=== PATIENT | male | born 1955 | race Caucasian/White ===

== ENCOUNTER 2017-11-24 08:56 | Emergency (ER) | payer OTHER ==
[2017-11-24] MEDS ORDERED: fentaNYL PF VIAL 100 MCG/2 ML VIAL IV (09:15)
[2017-11-24 09:19] LABS: ADD MAN DIFF? NO
[2017-11-24 09:28] LABS: BASO # 0.1 x10^3/uL (0.0-0.2); BASO % 1 % (0-3); EOS # 0.2 x10^3/uL (0.0-0.7); EOS % 3 % (0-3); HEMATOCRIT 47.1 % (39.0-53.0); LYMPH # 2.5 x10^3/uL (1.0-4.8); LYMPH % 40 % (24-48); MEAN CORPUSCULAR HEMOGLOBIN 31 pg (25-35); MEAN CORPUSCULAR HGB CONC 34 g/dL (31-37); MEAN CORPUSCULAR VOLUME 91 fL (79-100); MONO # 0.5 x10^3/uL (0.0-1.1); MONO % 8 % (0-9); NEUT % 48 % (31-73); PLATELET COUNT 157 x10^3/uL (140-400); RED BLOOD COUNT 5.16 x10^6/uL (4.30-5.70); RED CELL DISTRIBUTION WIDTH 14.2 % (11.5-14.5); WHITE BLOOD COUNT 6.3 x10^3/uL (4.0-11.0)
[2017-11-24 09:38] LABS: ALBUMIN 4.1 g/dL (3.4-5.0); ALK PHOS 53 U/L (46-116); ALT (SGPT) 91 U/L (16-63); ANION GAP 14 (6-14); AST (SGOT) 81 U/L (15-37); BLOOD UREA NITROGEN 10 mg/dL (8-26); CALCIUM 9.2 mg/dL (8.5-10.1); CARBON DIOXIDE 26 mmol/L (21-32); CHLORIDE 104 mmol/L (98-107); CREATININE 1.1 mg/dL (0.7-1.3); DIRECT BILIRUBIN 0.1 mg/dL (0.0-0.2); GFR 68.3; GLUCOSE 92 mg/dL (70-99); LIPASE 272 U/L (73-393); POTASSIUM 3.4 mmol/L (3.5-5.1); SODIUM 144 mmol/L (136-145); TOTAL BILIRUBIN 0.4 mg/dL (0.2-1.0)
[2017-11-24 09:38] LABS: ETHANOL 226 mg/dL (0-10)
[2017-11-24 09:39] LABS: TROPONINI < 0.017 ng/mL (0.000-0.055)
[2017-11-24 09:45] LABS: CKMB INDEX 1.1 % (0-4); CKMB MASS 1.1 ng/mL (0.0-3.6); CREATINE KINASE 101 U/L (39-308)
[2017-11-24 09:45] LABS: NT-PRO BNP 44 pg/mL (0-124)
[2017-11-24 09:46] LABS: THYROID STIM HORMONE (TSH) 1.051 uIU/mL (0.358-3.74)
[2017-11-24] MEDS: MULTIVIT INFUSN,ADULT 4,VIT K 10 ML, THIAMINE 100 MG, FOLIC ACID 1 MG in IV RINGERS,LAC... IV (09:52)
== END 2017-11-24 11:20 | disposition home or self-care (01) ==
LOC: ER 08:56
DX: R55 Syncope and collapse (principal); F10.129 Alcohol abuse with intoxication, unspecified; S09.90XA Unspecified injury of head, initial encounter; I10 Essential (primary) hypertension; F12.10 Cannabis abuse, uncomplicated; W19.XXXA Unspecified fall, initial encounter; Y93.E1 Activity, personal bathing and showering; Y99.8 Other external cause status; Y92.89 Other specified places as the place of occurrence of the external cause
CPT/HCPCS: 36415; 70450; 71045; 72125; 80048; 80076; 82553; 83690; 83880; 84443; 84484; 85025; 93005; 96365; 99285-25; G0480; J7120

== ENCOUNTER 2017-11-29 16:16 | Inpatient (IN) | payer OTHER ==
[2017-11-29] MEDS: ONDANSETRON PF 4 MG/2 ML VIAL. IV (16:45)
[2017-11-29] MEDS: IV NORMAL SALINE 1000ML BAG 1,000 ML IV ×2 (17:42→22:59)
[2017-11-29] MEDS: THIAMINE 100 MG in IV DEXTROSE 5% 50 ML IV (17:43)
[2017-11-29 19:06] LABS: ANION GAP 13 (6-14); BLOOD UREA NITROGEN 24 mg/dL (8-26); BUN/CREATININE RATIO 22 (6-20); CALCIUM 8.4 mg/dL (8.5-10.1); CARBON DIOXIDE 23 mmol/L (21-32); CHLORIDE 100 mmol/L (98-107); CREATININE 1.1 mg/dL (0.7-1.3); GFR 68.3; GLUCOSE 101 mg/dL (70-99); POTASSIUM 3.6 mmol/L (3.5-5.1); SODIUM 136 mmol/L (136-145)
[2017-11-29 19:08] LABS: ETHANOL < 10 mg/dL (0-10)
[2017-11-29 19:11] LABS: ALBUMIN 3.3 g/dL (3.4-5.0); ALBUMIN/GLOBULIN RATIO 1.3 (1.0-1.7); ALK PHOS 44 U/L (46-116); ALT (SGPT) 37 U/L (16-63); AST (SGOT) 33 U/L (15-37); LIPASE 129 U/L (73-393); TOTAL BILIRUBIN 0.7 mg/dL (0.2-1.0); TOTAL PROTEIN 5.9 g/dL (6.4-8.2)
[2017-11-29 19:12] LABS: TROPONINI 0.034 ng/mL (0.000-0.055)
[2017-11-29 19:29] LABS: ADD MAN DIFF? NO; BASO % 1 % (0-3); EOS % 0 % (0-3); HEMATOCRIT 36.1 % (39.0-53.0); HEMOGLOBIN 12.9 g/dL (13.0-17.5); LYMPH # 1.5 x10^3/uL (1.0-4.8); LYMPH % 20 % (24-48); MEAN CORPUSCULAR HEMOGLOBIN 32 pg (25-35); MEAN CORPUSCULAR HGB CONC 36 g/dL (31-37); MEAN CORPUSCULAR VOLUME 89 fL (79-100); MONO # 0.7 x10^3/uL (0.0-1.1); MONO % 9 % (0-9); NEUT # 5.5 x10^3uL (1.8-7.7); NEUT % 70 % (31-73); PLATELET COUNT 133 x10^3/uL (140-400); RED BLOOD COUNT 4.05 x10^6/uL (4.30-5.70); RED CELL DISTRIBUTION WIDTH 13.8 % (11.5-14.5); WHITE BLOOD COUNT 7.8 x10^3/uL (4.0-11.0)
[2017-11-29] MEDS ORDERED: NITROGLYCERIN SUBLINGUAL 0.4 MG BOTTLE OF 25. SL (19:45)
[2017-11-29] MEDS ORDERED: ONDANSETRON PF 4 MG/2 ML VIAL. IV (19:45)
[2017-11-29 20:44] LABS: BILIRUBIN,URINE NEGATIVE (NEG); CLARITY,URINE CLEAR; COLOR,URINE YELLOW; GLUCOSE,URINE NEGATIVE (NEG); NITRITE,URINE NEGATIVE (NEG); PH,URINE 5.5; PROTEIN,URINE NEGATIVE (NEG-TRACE); UROBILINOGEN,URINE 0.2 mg/dL (0.2 mg/dL)
[2017-11-29 20:50] LABS: RBC,URINE 0 /HPF (0-2); WBC,URINE 0 /HPF (0-4)
[2017-11-29 20:51] LABS: BACTERIA,URINE 0 /HPF (0-FEW); BARBITURATES NEG (NEG); BENZODIAZEPINES POS (NEG); CANNABINOIDS POS (NEG); COCAINE NEG (NEG); HYALINE CASTS, URINE FEW /HPF; METHADONE NEG (NEG); OPIATES NEG (NEG); PHENCYCLIDINE NEG (NEG); SQUAMOUS EPITHELIAL CELL,UR FEW /LPF
[2017-11-29 20:52] LABS: AMPHETAMINE/METHAMPHETAMINE NEG (NEG); ETHANOL, URINE POS (NEG)
[2017-11-29] MEDS: ACETAMINOPHEN 325 MG TABLET. PO (22:38)
[2017-11-29] MEDS: fentaNYL PF VIAL 100 MCG/2 ML VIAL IV (22:41)
[2017-11-29 23:13] LABS: TROPONINI 0.943 ng/mL (0.000-0.055)
[2017-11-30 05:29] LABS: ADD MAN DIFF? NO
[2017-11-30 05:35] LABS: BASO % 1 % (0-3); EOS % 0 % (0-3); HEMATOCRIT 34.3 % (39.0-53.0); HEMOGLOBIN 12.1 g/dL (13.0-17.5); LYMPH # 1.5 x10^3/uL (1.0-4.8); LYMPH % 24 % (24-48); MEAN CORPUSCULAR HEMOGLOBIN 31 pg (25-35); MEAN CORPUSCULAR HGB CONC 35 g/dL (31-37); MEAN CORPUSCULAR VOLUME 89 fL (79-100); MONO # 0.8 x10^3/uL (0.0-1.1); MONO % 12 % (0-9); NEUT # 4.1 x10^3uL (1.8-7.7); NEUT % 64 % (31-73); PLATELET COUNT 128 x10^3/uL (140-400); RED BLOOD COUNT 3.85 x10^6/uL (4.30-5.70); RED CELL DISTRIBUTION WIDTH 13.9 % (11.5-14.5); WHITE BLOOD COUNT 6.4 x10^3/uL (4.0-11.0)
[2017-11-30] MEDS: IV NORMAL SALINE 1000ML BAG 1,000 ML IV ×3 (05:43→16:40)
[2017-11-30] MEDS: LORazepam 1 MG TABLET PO ×4 (05:43→22:10)
[2017-11-30 06:02] LABS: ALBUMIN 3.1 g/dL (3.4-5.0); ALBUMIN/GLOBULIN RATIO 1.2 (1.0-1.7); ALK PHOS 42 U/L (46-116); ALT (SGPT) 32 U/L (16-63); ANION GAP 11 (6-14); AST (SGOT) 36 U/L (15-37); BLOOD UREA NITROGEN 19 mg/dL (8-26); BUN/CREATININE RATIO 17 (6-20); CALCIUM 8.1 mg/dL (8.5-10.1); CARBON DIOXIDE 26 mmol/L (21-32); CHLORIDE 102 mmol/L (98-107); CREATININE 1.1 mg/dL (0.7-1.3); GFR 68.3; GLUCOSE 107 mg/dL (70-99); POTASSIUM 3.4 mmol/L (3.5-5.1); SODIUM 139 mmol/L (136-145); TOTAL BILIRUBIN 0.9 mg/dL (0.2-1.0); TOTAL PROTEIN 5.6 g/dL (6.4-8.2)
[2017-11-30 06:09] LABS: TROPONINI 2.475 ng/mL (0.000-0.055)
[2017-11-30] MEDS ORDERED: THIAMINE 100 MG in IV DEXTROSE 5% 50 ML IV (09:00)
[2017-11-30 09:03] LABS: MAGNESIUM 1.8 mg/dL (1.8-2.4)
[2017-11-30 09:03] LABS: CHOLESTEROL 148 mg/dL (0-200); HDLC 40 mg/dL (40-60); LDLC 72 mg/dL (0-100); NON-HDL CHOLESTEROL 108 mg/dL (0-129); TRIGLYCERIDES 179 mg/dL (0-150); VLDLC 36 mg/dL (0-40)
[2017-11-30 09:04] LABS: CHOLESTEROL/HDL RATIO 3.7
[2017-11-30 09:11] LABS: CKMB INDEX 9.3 % (0-4); CKMB MASS 13.5 ng/mL (0.0-3.6); CREATINE KINASE 145 U/L (39-308)
[2017-11-30] MEDS: IOHEXOL 300 MG/ML 100ML VIAL. IV (10:00)
[2017-11-30] MEDS ORDERED: CONTRAST GIVEN MC (10:00)
[2017-11-30] MEDS: GADOBUTROL 7.5 MMOL/7.5 ML VIAL IV (10:45)
[2017-11-30] MEDS: METOPROLOL TART IMMED RELEASE 50 MG TABLET. PO ×2 (11:25→20:59)
[2017-11-30] MEDS: PANTOPRAZOLE 40 MG TABLET.DR. PO (11:26)
[2017-11-30] MEDS: ACETAMINOPHEN 325 MG TABLET. PO ×2 (11:26→19:43)
[2017-11-30] MEDS: FOLIC ACID 1 MG TABLET. PO (11:26)
[2017-11-30] MEDS: MULTIVITAMIN with MINERAL TABLET. PO (11:26)
[2017-11-30] MEDS: THIAMINE IM 200 MG/2 ML VIAL. IM (11:28)
[2017-11-30 12:18] LABS: INR 1.1 (0.8-1.1); PROTHROMBIN TIME PATIENT 13.9 SEC (11.7-14.0)
[2017-11-30 12:19] LABS: THYROID STIM HORMONE (TSH) 1.493 uIU/mL (0.358-3.74)
[2017-11-30 12:22] LABS: VITAMIN-B12 364 pg/mL (247-911)
[2017-11-30 12:28] LABS: TROPONINI 3.022 ng/mL (0.000-0.055)
[2017-11-30] MEDS ORDERED: HEPARIN 25,000UTS/500ML PREMIX 500 ML IV (14:00)
[2017-11-30] MEDS ORDERED: HEPARIN for IV BOLUS 10,000 UNIT/10 ML VIAL. IV (14:00)
[2017-11-30] MEDS: ANTI-COAG MONITOR BY PHARMACY. MC (14:42)
[2017-11-30] MEDS: ASPIRIN 325 MG TABLET PO (14:45)
[2017-12-01] MEDS: LORazepam 1 MG TABLET PO ×3 (03:50→10:00)
[2017-12-01 05:11] LABS: HEMATOCRIT 34.2 % (39.0-53.0); HEMOGLOBIN 12.1 g/dL (13.0-17.5); MEAN CORPUSCULAR HEMOGLOBIN 32 pg (25-35); MEAN CORPUSCULAR HGB CONC 35 g/dL (31-37); MEAN CORPUSCULAR VOLUME 91 fL (79-100); PLATELET COUNT 120 x10^3/uL (140-400); RED BLOOD COUNT 3.78 x10^6/uL (4.30-5.70); RED CELL DISTRIBUTION WIDTH 14.1 % (11.5-14.5); WHITE BLOOD COUNT 6.6 x10^3/uL (4.0-11.0)
[2017-12-01 05:26] LABS: ANION GAP 8 (6-14); BLOOD UREA NITROGEN 12 mg/dL (8-26); CARBON DIOXIDE 26 mmol/L (21-32); CHLORIDE 104 mmol/L (98-107); GFR 76.2; GLUCOSE 106 mg/dL (70-99); POTASSIUM 3.2 mmol/L (3.5-5.1); SODIUM 138 mmol/L (136-145)
[2017-12-01 06:33] LABS: SEDIMENTATION RATE 20 (0-15)
[2017-12-01] MEDS: MULTIVITAMIN with MINERAL TABLET. PO (09:00)
[2017-12-01] MEDS: FOLIC ACID 1 MG TABLET. PO (09:00)
[2017-12-01] MEDS: POTASSIUM CHLORIDE 20 MEQ TABLET.ER. PO ×2 (09:15→17:59)
[2017-12-01] MEDS: PANTOPRAZOLE 40 MG TABLET.DR. PO (09:44)
[2017-12-01] MEDS: METOPROLOL TART IMMED RELEASE 50 MG TABLET. PO ×2 (09:45→21:00)
[2017-12-01] MEDS: ANTI-COAG MONITOR BY PHARMACY. MC (11:04)
[2017-12-01] MEDS ORDERED: LIDOCAINE 2% 20 ML VIAL. (12:06)
[2017-12-01] MEDS ORDERED: IODIXANOL 320 MG/ML 100 ML VIAL. ×4 (12:06→14:09)
[2017-12-01] MEDS: PARoxetine 20 MG TABLET PO (13:00)
[2017-12-01] MEDS ORDERED: fentaNYL PF VIAL 100 MCG/2 ML VIAL (13:05)
[2017-12-01] MEDS ORDERED: MIDAZOLAM HCL/PF 2 MG/2 ML VIAL. (13:05)
[2017-12-01] MEDS: fentaNYL PF VIAL 100 MCG/2 ML VIAL IV ×2 (13:30→16:43)
[2017-12-01] MEDS: MIDAZOLAM HCL/PF 2 MG/2 ML VIAL. IV (13:30)
[2017-12-01] MEDS ORDERED: BIVALIRUDIN 250 MG VIAL. IV (13:44)
[2017-12-01] MEDS ORDERED: CLOPIDOGREL BISULFATE 75 MG TABLET PO (14:00)
[2017-12-01] MEDS ORDERED: ASPIRIN 325 MG TABLET (14:01)
[2017-12-01] MEDS ORDERED: CLOPIDOGREL BISULFATE 75 MG TABLET (14:01)
[2017-12-01] MEDS ORDERED: TICAGRELOR 90 MG TABLET. (14:43)
[2017-12-01] MEDS: TICAGRELOR 90 MG TABLET. PO (14:45)
[2017-12-01] MEDS: IODIXANOL 320 MG/ML 100 ML VIAL. IART (14:47)
[2017-12-01] MEDS: BIVALIRUDIN 250 MG VIAL. IV (14:48)
[2017-12-01] MEDS: LIDOCAINE 2% 20 ML VIAL. IJ (14:48)
[2017-12-01] MEDS: ASPIRIN 325 MG TABLET PO (14:49)
[2017-12-01] MEDS ORDERED: AMIODARONE 150 MG in IV DEXTROSE 5% 100 ML IV (15:00)
[2017-12-01] MEDS ORDERED: 0.9 % SODIUM CHLORIDE 10 ML DISP.SYRIN. IV (15:00)
[2017-12-01] MEDS ORDERED: NITROGLYCERIN SUBLINGUAL 0.4 MG BOTTLE OF 25. SL (15:00)
[2017-12-01] MEDS ORDERED: LIDOCAINE 2% 100 MG/5 ML SYRINGE. IV (15:00)
[2017-12-01] MEDS ORDERED: ATROPINE 0.5 MG/5 ML DISP.SYRIN. IV (15:00)
[2017-12-01] MEDS: ASPIRIN ENTERIC COATED 81 MG TABLET.DR. PO (16:00)
[2017-12-01] MEDS: IV NORMAL SALINE 1000ML BAG 1,000 ML IV (16:47)
[2017-12-01] MEDS: THIAMINE IM 200 MG/2 ML VIAL. IM (18:00)
[2017-12-02 05:09] LABS: ADD MAN DIFF? NO
[2017-12-02 05:29] LABS: BASO % 1 % (0-3); EOS % 1 % (0-3); HEMATOCRIT 38.8 % (39.0-53.0); HEMOGLOBIN 13.3 g/dL (13.0-17.5); LYMPH # 1.1 x10^3/uL (1.0-4.8); LYMPH % 20 % (24-48); MEAN CORPUSCULAR HEMOGLOBIN 31 pg (25-35); MEAN CORPUSCULAR HGB CONC 34 g/dL (31-37); MEAN CORPUSCULAR VOLUME 91 fL (79-100); MONO # 0.7 x10^3/uL (0.0-1.1); MONO % 12 % (0-9); NEUT # 3.7 x10^3uL (1.8-7.7); NEUT % 67 % (31-73); PLATELET COUNT 136 x10^3/uL (140-400); RED BLOOD COUNT 4.26 x10^6/uL (4.30-5.70); RED CELL DISTRIBUTION WIDTH 13.7 % (11.5-14.5); WHITE BLOOD COUNT 5.6 x10^3/uL (4.0-11.0)
[2017-12-02 06:17] LABS: ALBUMIN 2.8 g/dL (3.4-5.0); ALBUMIN/GLOBULIN RATIO 0.8 (1.0-1.7); ALK PHOS 53 U/L (46-116); ALT (SGPT) 36 U/L (16-63); ANION GAP 10 (6-14); AST (SGOT) 66 U/L (15-37); BLOOD UREA NITROGEN 9 mg/dL (8-26); BUN/CREATININE RATIO 9 (6-20); CALCIUM 8.9 mg/dL (8.5-10.1); CARBON DIOXIDE 26 mmol/L (21-32); CHLORIDE 106 mmol/L (98-107); GFR 76.2; GLUCOSE 93 mg/dL (70-99); POTASSIUM 3.7 mmol/L (3.5-5.1); SODIUM 142 mmol/L (136-145); TOTAL BILIRUBIN 0.8 mg/dL (0.2-1.0); TOTAL PROTEIN 6.4 g/dL (6.4-8.2)
[2017-12-02] MEDS: FOLIC ACID 1 MG TABLET. PO (07:46)
[2017-12-02] MEDS: MULTIVITAMIN with MINERAL TABLET. PO (07:46)
[2017-12-02] MEDS: ACETAMINOPHEN 325 MG TABLET. PO (07:46)
[2017-12-02] MEDS: ASPIRIN ENTERIC COATED 81 MG TABLET.DR. PO (07:46)
[2017-12-02] MEDS: PANTOPRAZOLE 40 MG TABLET.DR. PO (07:48)
[2017-12-02] MEDS: PARoxetine 20 MG TABLET PO ×2 (07:48→07:50)
[2017-12-02] MEDS: TICAGRELOR 90 MG TABLET. PO (07:48)
[2017-12-02] MEDS: METOPROLOL TART IMMED RELEASE 50 MG TABLET. PO (07:48)
[2017-12-02] MEDS: THIAMINE IM 200 MG/2 ML VIAL. IM (07:49)
[2017-12-02] MEDS: diazePAM 5 MG TABLET PO (14:11)
[2017-12-02 17:10] LABS: ANGIOTENSIN CONVERTING ENZYME 43 U/L (14-82)
== END 2017-12-02 17:02 | disposition home or self-care (01) | DRG 246 ==
LOC: ER 16:16 → 2 NORTH 19:26
PROC: 027136Z Dilation of Coronary Artery, Two Arteries with Three Drug-eluting Intraluminal Devices, Percutaneous Approach (ICD-10-PCS; principal; 2017-11-29)
PROC: 4A023N7 Measurement of Cardiac Sampling and Pressure, Left Heart, Percutaneous Approach (ICD-10-PCS; 2017-12-01)
PROC: B2151ZZ Fluoroscopy of Left Heart using Low Osmolar Contrast (ICD-10-PCS; 2017-12-01)
PROC: B2111ZZ Fluoroscopy of Multiple Coronary Arteries using Low Osmolar Contrast (ICD-10-PCS; 2017-12-01)
DX: I21.4 Non-ST elevation (NSTEMI) myocardial infarction (principal); G92 Toxic encephalopathy; I27.20 Pulmonary hypertension, unspecified; I11.0 Hypertensive heart disease with heart failure; I50.9 Heart failure, unspecified; F10.239 Alcohol dependence with withdrawal, unspecified; J98.11 Atelectasis; S00.03XA Contusion of scalp, initial encounter; E78.5 Hyperlipidemia, unspecified; F12.90 Cannabis use, unspecified, uncomplicated; F17.210 Nicotine dependence, cigarettes, uncomplicated; G43.909 Migraine, unspecified, not intractable, without status migrainosus; F32.9 Major depressive disorder, single episode, unspecified; I25.10 Atherosclerotic heart disease of native coronary artery without angina pectoris; Z82.49 Family history of ischemic heart disease and other diseases of the circulatory system; Z95.5 Presence of coronary angioplasty implant and graft
CPT/HCPCS: 36415; 70450; 70486; 70553; 71045; 71275; 80048; 80053; 80061; 80307; 81001; 82164; 82553; 82607; 83690; 83735; 84443; 84484; 85025; 85027; 85610; 85651; 92928; 93005; 93306; 93458; 95816; 96365; 96375; 99285-25; A9585; C1725; C1769; C1771; C1876; C1887; C1892; G0269; G0480; J0583; J1644; J1650; J2060; J3010; J7030; Q9967